=== PATIENT | male | born 1935 | race Caucasian/White ===

== ENCOUNTER 2016-03-19 06:01 | Emergency (ER) | payer OTHER, MEDICARE ==
[~2016-03-19] VITALS: Ht 188 cm; Wt 111.1 kg
[~2016-03-19 06:01] MED LIST: ALLEGRA180 MG PO; ASPIRIN81 M1 PO; ATENOLOL50 MG PO; ESZOPICLONE2 MG PO; FINASTERIDE5 MG PO; NORVASC 5MG TAB5 MG PO; TAMSULOSIN HYD0.4 MG PO; VALSARTAN320 MG PO
[2016-03-19 06:29] VITALS: BP 143/76
--- NOTE | 2016-03-19 07:00 | ED GI/GU/ABDOMINAL COMPLAINT ---
History of Present Illness General Chief Complaint: Male Genitourinary Problems Stated Complaint: DIFFICULTY URINATING Source: patient, old records Exam Limitations: no limitations Vital Signs & Intake/Output Vital Signs & Intake/Output Vital Signs Date Time Temp Pulse Resp B/P Pulse O2 O2 Flow FiO2 Ox Delivery Rate 03/19 0629 96.9 63 18 143/76 96 Room Air Allergies Coded Allergies: MDX - SULFA (sulfonamide) (UNKNOWN 02/21/15) Uncoded Allergies: ANTIHISTAMINES (Mild, UNKNOWN 04/09/11) Reconcile Medications Amlodipine (Norvasc 5MG Tab) 5 MG TAB 1 TAB PO DAILY BLOOD PRESSURE (Reported ) Aspirin 81 MG CTB 1 TAB PO DAILY HEART HEALTH (Reported) Atenolol 50 MG TAB 1 TAB PO DAILY BLOOD PRESSURE (Reported) Eszopiclone 2 MG TAB 1 TAB PO DAILY INSOMNIA (Reported) Fexofenadine Hydrochloride (Cecy) 180 MG TAB 1 TAB PO DAILY ALLERGIES ( Reported) Finasteride 5 MG TAB 1 TAB PO DAILY PROSTATE (Reported) TAMSULOSIN HCL (Tamsulosin Hydrochloride) 0.4 MG CAP 1 CAP PO DAILY ENLARGED PROSTATE (Reported) Valsartan 320 MG TAB 1 TAB PO DAILY BLOOD PRESSURE (Reported) Triage Note: PER PT "I HAVE A VERY LARGE PROSTATE, IM EITHER HAVING PROSTATITIS OR UTI". PT STATES HE HAS INCREASING PAIN SINCE YESTERDAY. PAIN IS IN THE LOWER ABDOMEN, "RIGHT ABOVE THE PENIS, MIXTURE OF PAIN AND A LOT OF DISCOMFORT". PT STATES HE IS URINATING VERY SMALL AMOUNTS EVERY 5 OR 6 MINUTES. PT STATES HE IS NOW UNABLE TO GO AT ALL. PT STATES WHEN HE WAS ABLE TO URINATE IT BURNED. PT STATES PAIN IS A 4/10. Triage Nurses Notes Reviewed? yes HPI: Patient presents with dysuria, frequency and duration since yesterday. Patient states it feels like he is going every 5 minutes. Patient states that twice it also occurred that he felt like he could not get anything out. Patient also had 2 episodes where it felt like he could not get any urine out for approx 1 hour before he was able to go again. sililar symptoms in the past with uti's. the dysuria is a burning sensation and worsens when he urinates. there is no radiation, it is constant. he rates it at 6 out of 10. There are no fevers or chills. No back pain, No vomiting. Past History Travel History Traveled to [place] past 21 day No Medical History Any Pertinent Medical History? see below for history Neurological: NONE EENT: allergies, sinusitis Cardiovascular: hypertension Respiratory: NONE Gastrointestinal: NONE Hepatic: NONE Renal: benign prost hyperplasia, nephrolithiasis Musculoskeletal: NONE Psychiatric: insomnia Endocrine: NONE Blood Disorders: NONE Cancer(s): NONE MUSEUM CURATOR/Reproductive: NONE Surgical History Surgical History: non-contributory Psychosocial History Who do you live with Spouse Services at Home None What is your primary language Latvian Tobacco Use: Never used ETOH Use: occasional use Illicit Drug Use: denies illicit drug use Family History Hx Contributory? No Review of Systems Review of Systems Constitutional: Reports: no symptoms. EENTM: Reports: no symptoms. Respiratory: Reports: no symptoms. Cardiovascular: Reports: no symptoms. GI: Reports: no symptoms. Genitourinary: Reports: see HPI, dysuria, frequency, hesitation, pain, urgency. Musculoskeletal: Reports: no symptoms. Skin: Reports: no symptoms. Neurological/Psychological: Reports: no symptoms. Hematologic/Endocrine: Reports: no symptoms. Immunologic/Allergic: Reports: no symptoms. All Other Systems: Reviewed and Negative Physical Exam Physical Exam General Appearance: well developed/nourished, alert, awake, anxious, mild distress Head: atraumatic, normal appearance Eyes: Bilateral: PERRL, EOMI. Ears, Nose, Throat, Mouth: hearing grossly normal, moist mucous membrane Neck: normal inspection, supple, full range of motion Respiratory: normal breath sounds, chest non-tender, no respiratory distress, lungs clear Cardiovascular: regular rate/rhythm, normal peripheral pulses Gastrointestinal: normal bowel sounds, soft, non-tender, no organomegaly Back: normal inspection, normal range of motion, No CVA tenderness Extremities: normal range of motion Neurologic/Psych: no motor/sensory deficits, awake, alert, oriented x 3, normal gait, normal mood/affect Skin: intact, normal color, warm/dry Core Measures ACS in differential dx? No Severe Sepsis Present: No Septic Shock Present: No Progress Differential Diagnosis: urinary retention, UTI/pyelo Plan of Care: Orders Procedure Date/time Status Cannon, Insertion/Removal/Asses 03/19 0730 Active CULTURE,URINE 03/19 0730 Active Add-on Test (ER Only) 03/19 0659 Active CULTURE,URINE 03/19 0649 Active URINALYSIS 03/19 0549 Complete Current Medications Sig/Sho Start time Last Medication Dose Stop Time Status Admin Ciprofloxacin 250 MG ONCE ONE 03/19 0645 AC (Cipro) 03/19 745 Phenazopyridine HCl 100 MG ONCE ONE 03/19 744 AC (Pyridium) 03/19 07 Laboratory Tests 03/19/16 0650: Urine Color STRAW, Urine Clarity CLDY H, Urine pH 6.0, Ur Specific Flasher 1.015, Urine Protein TRACE H, Urine Ketones NEG, Urine Nitrite NEG, Urine Bilirubin NEG, Urine Urobilinogen 0.2, Ur Leukocyte Esterase LARGE H, Ur Microscopic SEDIMENT EXAMINED, Urine RBC 10-15 H, Urine WBC 15-25 H, Ur Epithelial Cells FEW, Urine Mucus FEW, Urine Hemoglobin LARGE H, Urine Glucose NEG Microbiology 03/19 729 URINE ROUT: Urine Culture - ORD 03/19 648 URINE ROUT: Urine Culture - RECD Initial ED EKG: none Comments: Bedside ultrasound by ER physician shows a large, full bladder consistent with urinary retention and overflow incontinence. Departure Departure Disposition: HOME OR SELF CARE Condition: Stable Clinical Impression Primary Impression: Urinary retention Secondary Impressions: UTI (urinary tract infection) Referrals: DALLAS FARRELL,SU Nolasco (PCP/Family) JANE FARRELL,RAYSHAWN Latif Additional Instructions: keep cannon in and follow up with Dr. Grove at your appointment on take Cipro and Pyridium as prescribed return if symptoms worsen or for any concerns Departure Forms: Customer Survey General Discharge Information Prescriptions: Current Visit Scripts Ciprofloxacin HCl (Cipro) 1 TAB PO BID #14 TAB Phenazopyridine HCl (Pyridium) 1 TAB PO TID #9 TAB
[2016-03-19] MEDS ORDERED: CIPRO250 M1 PO (07:33)
[2016-03-19] MEDS ORDERED: PYRIDIUM200 M1 PO (07:34)
== END 2016-03-19 08:26 ==
LOC: ERH 06:01
DX: R33.9 Retention of urine, unspecified (principal); N39.0 Urinary tract infection, site not specified
CPT/HCPCS: 81001; 87086